=== PATIENT | male | born 1965 | race American Indian/Alaskan Native ===

== ENCOUNTER 2017-09-22 18:47 | Inpatient (IN) | payer OTHER ==
[2017-09-22 19:57] LABS: Basophils % (Auto) 0.8 % (0.0-1.8); Eosinophils % (Auto) 5.4 % (0.0-4.3); Hematocrit 37.4 % (35.5-45.6); Hemoglobin 12.8 gm/dl (11.8-15.2); Mean Corpuscular HGB Conc 34 % (32-34); Mean Corpuscular Hemoglobin 28 pg (28-32); Mean Corpuscular Volume 82 fl (84-94); Platelet Count 233 K/mm3 (140-440); Red Blood Count 4.54 M/mm3 (3.65-5.03); Red Cell Distribution Width 14.5 % (13.2-15.2)
[2017-09-22 20:15] LABS: Anion Gap 17 mmol/L; BUN/Creatinine Ratio 17; Blood Urea Nitrogen 31 mg/dL (9-20); Calcium 9.5 mg/dL (8.4-10.2); Carbon Dioxide 28 mmol/L (22-30); Chloride 98.2 mmol/L (98-107); Glucose 109 mg/dL (75-100); Potassium 4.3 mmol/L (3.6-5.0); Sodium 139 mmol/L (137-145)
[2017-09-22] MEDS ORDERED: MORPHINE IV ONE (20:43)
[2017-09-22] MEDS ORDERED: ZOFRAN IV ONE (20:43)
--- NOTE | 2017-09-22 20:48 | Emergency Department Report ---
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 Patient denied any cough fever and no other complaint. MD Complaint: chest pain -: days(s) Onset: during rest Pain Location: substernal, left chest Pain Radiation: none Quality: tightness, sharp, dull Consistency: intermittent re: denies: nausea, vomting, diaphoresis Other Symptoms: cough - Related Data Allergies Allergy/AdvReac Type Severity Reaction Status Date / Time No Known Allergies Allergy Verified 09/22/17 21:15 Heart Score - HEART Score History: Moderately suspicious EKG: Non-specific Age: 45-65 Risk factors: 1-2 risk factors Troponin: < normal limit HEART Score: 4 - Critical Actions Critical Actions: 4-6 pts:12-16.6% risk of adverse cardiac event. Should be admitted ED Review of Systems ROS: Stated complaint: CRAMPING UPPER BODY Other details as noted in HPI Comment: All other systems reviewed and negative Constitutional: denies: chills, fever Respiratory: shortness of breath, SOB at rest. denies: cough Cardiovascular: chest pain. denies: palpitations Gastrointestinal: denies: abdominal pain, nausea, vomiting, diarrhea Neurological: denies: headache, weakness, numbness, paresthesias ED Past Medical Hx - Past Medical History Hx Hypertension: Yes Hx Deep Vein Thrombosis: Yes - Surgical History Past Surgical History?: No - Social History Smoking Status: Never Smoker Substance Use Type: None ED Physical Exam - General Limitations: No Limitations General appearance: alert, in no apparent distress - Head Head exam: Present: normocephalic, normal inspection - ENT ENT exam: Present: normal exam, normal orophraynx - Neck Neck exam: Present: normal inspection, full ROM. Absent: tenderness, meningismus, lymphadenopathy, thyromegaly - Respiratory Respiratory exam: Present: normal lung sounds bilaterally. Absent: respiratory distress, wheezes, rales, rhonchi, accessory muscle use, decreased breath sounds , prolonged expiratory - Cardiovascular Cardiovascular Exam: Present: regular rate, normal rhythm, normal heart sounds - GI/Abdominal GI/Abdominal exam: Present: soft, normal bowel sounds. Absent: distended, tenderness, guarding, rebound, rigid, organomegaly, mass, bruit, pulsatile mass , hernia - Extremities Exam Extremities exam: Present: normal inspection. Absent: pedal edema - Back Exam Back exam: Present: normal inspection. Absent: tenderness, CVA tenderness (R), CVA tenderness (L), muscle spasm - Neurological Exam Neurological exam: Present: alert, oriented X3, CN II-XII intact, normal gait - Skin Skin exam: Present: warm, intact, normal color ED Course Vital Signs 09/22/17 09/22/17 09/22/17 18:54 18:58 19:00 Temperature 97.7 F Pulse Rate 86 77 Respiratory 26 H 11 L Rate Blood Pressure 161/97 161/97 161/97 O2 Sat by Pulse 100 100 100 Oximetry 09/22/17 09/22/17 09/22/17 19:16 19:30 19:46 Temperature Pulse Rate 83 74 70 Respiratory 11 L 11 L 12 Rate Blood Pressure 141/93 147/89 138/86 O2 Sat by Pulse 97 98 97 Oximetry 09/22/17 09/22/17 09/22/17 20:00 20:16 20:30 Temperature Pulse Rate 70 71 73 Respiratory 12 10 L 13 Rate Blood Pressure 138/86 138/86 138/86 O2 Sat by Pulse 97 98 97 Oximetry 09/22/17 09/22/17 09/22/17 20:46 20:57 21:00 Temperature Pulse Rate 77 73 Respiratory 10 L 18 13 Rate Blood Pressure 138/86 138/86 O2 Sat by Pulse 98 97 Oximetry 09/22/17 09/22/17 09/22/17 21:16 21:31 21:46 Temperature Pulse Rate 65 66 68 Respiratory 12 13 9 L Rate Blood Pressure 138/86 138/86 138/86 O2 Sat by Pulse 98 97 96 Oximetry 09/22/17 09/22/17 09/22/17 22:00 22:16 23:11 Temperature Pulse Rate 65 66 Respiratory 10 L 11 L 18 Rate Blood Pressure 138/86 138/86 O2 Sat by Pulse 98 97 98 Oximetry - Reevaluation(s) Reevaluation #1: 09/22/17 23:46 Patient stated that his symptoms is much better. ED Medical Decision Making - Lab Data Result diagrams: 09/22/17 19:33 09/22/17 19:33 - Radiology Data Radiology results: report reviewed VQ scan came back as low probability - Medical Decision Making discuss with Dr Last for admission. Critical care attestation.: If time is entered above; I have spent that time in minutes in the direct care of this critically ill patient, excluding procedure time. ED Disposition Clinical Impression: Chest pain Disposition: DC-09 OP ADMIT IP TO THIS HOSP Is pt being admited?: Yes Does the pt Need Aspirin: Yes Condition: Stable Instructions: Chest Pain (ED) Referrals: PRIMARY CARE, [Primary Care Provider] - 3-5 Days
[2017-09-22] MEDS ORDERED: MORPHINE ONE (20:57)
[2017-09-22] MEDS ORDERED: NACL ONE (21:11)
[2017-09-22 21:21] LABS: INR 1.1 (0.87-1.13); Partial Thromboplastin Time 31.2 Sec. (24.2-36.6)
--- NOTE | 2017-09-22 22:26 | XRay Report ---
FINAL REPORT EXAM: XR CHEST 1V AP HISTORY: chest pain COMPARISON: None available. FINDINGS: Frontal view(s) of the chest obtained. Cardiac silhouette within normal limits. No gross consolidation or effusion. No pneumothorax. IMPRESSION: No grossly acute findings.
--- NOTE | 2017-09-22 23:00 | Nuclear Medicine Report ---
FINAL REPORT EXAM: NM LUNG SCAN PERF/VENT HISTORY: CHEST PAIN,SOB, H/O DVT COMPARISON: Chest x-ray September 22, 2017. TECHNIQUE: 15.00 mCi Xenon5.00 MAA FINDINGS: Relatively homogeneous uptake of tracer in both the ventilation and perfusion portions of the exam. No mismatched defect. IMPRESSION: Very low probability exam for pulmonary embolus.
[2017-09-22] MEDS ORDERED: ASPIRIN PO ONE (23:55)
[2017-09-23] MEDS ORDERED: TYLENOL PO PRN (00:19)
[2017-09-23] MEDS ORDERED: NITROSTAT SL PRN (00:19)
[2017-09-23] MEDS ORDERED: ZOFRAN IV PRN (00:20)
[2017-09-23] MEDS ORDERED: MORPHINE IV PRN (00:21)
[2017-09-23] MEDS: NITRO-BID 2% TP SCH ×5 (01:28→19:04)
--- NOTE | 2017-09-23 01:42 | History and Physical Report ---
CHIEF COMPLAINT: Chest pain. Other complaints include abdominal pain. HISTORY OF PRESENT ILLNESS: The patient is a 52-year-old male presenting with retrosternal and precordial chest pain radiating to the left arm and left side of the neck. There is a history of associated shortness of breath, but no history of diaphoresis was reported. No history of cough or fever. No history of nausea or vomiting and pain. According to the patient, it started about 24-36 hours ago. The pain is tightness in nature, sometimes sharp and intermittent. The pain was relieved with pain medications. PAST MEDICAL HISTORY: Pertinent for hypertension, DVT or deep vein thrombosis. Also, the patient has past history of renal insufficiency. PAST SURGICAL HISTORY: Unremarkable. FAMILY HISTORY: Pertinent for coronary artery disease in the mother. SOCIAL HISTORY: The patient does not smoke, does not drink alcohol and does not use illicit drugs. MEDICATIONS: The patient's home medications are not known at this time. ALLERGIES: There are no known drug allergies. REVIEW OF SYSTEMS: CONSTITUTIONAL: There is no fever, no chills, no diaphoresis. HEENT: There is no headache or sore throat. CARDIOVASCULAR: Chest pain is present. No orthopnea. RESPIRATORY: Shortness of breath is present. GASTROINTESTINAL: There is no nausea, no vomiting. There is some abdominal discomfort and no diarrhea or constipation. NEUROLOGICAL: There is no numbness, no dizziness, no altered mental status. MUSCULOSKELETAL SYSTEM: Show no joint swelling or tenderness. DERMATOLOGICAL SYSTEM: Show no skin rash. GENITOURINARY: Showing no hematuria, dysuria, or flank pain. Rest of system review is normal. PHYSICAL EXAMINATION: GENERAL: At the time of exam, the patient was found to be alert and oriented x 3 and not in acute distress. VITAL SIGNS: Shows normal temperature with pulse of 66, respirations 11, blood pressure 138/86, and O2 sat of 97% on room air. HEENT: Showed pupils to be equal, round, reactive to light and accommodating. Extraocular muscles are intact. NECK: Supple with no JVD or carotid bruit. CARDIOVASCULAR SYSTEM: Show first and second heart sounds with no gallops or murmurs. RESPIRATORY: Showed good air entry on both sides of the lung with no abnormal breath sounds. GASTROINTESTINAL SYSTEM: Show abdomen to be full, soft, nontender with no organomegaly or rigidity. NEUROLOGICAL: Shows no focal deficit. MUSCULOSKELETAL: Show no joint swelling or tenderness. DERMATOLOGICAL SYSTEM: Showing no skin rash. GENITOURINARY: Showing no costovertebral angle tenderness. PERTINENT LABORATORY AND IMAGING STUDIES: The patient has CBC done with normal white count, normal hemoglobin and normal hematocrit. CBC differential was unremarkable except for elevated monocytes and eosinophils. Coagulation studies came back normal. The patient's chemistry shows normal electrolytes, with elevated BUN of 31 and elevated creatinine of 1.8 and low estimated GFR of 48. The patient's troponin level was unremarkable. The patient had a V/Q scan done because of his renal insufficiency and V/Q scan shows very low probability for pulmonary embolism. Also, the patient had chest x-ray done as part of the chest pain workup and shows no acute finding. DIAGNOSES: 1. Chest pain. 2. Acute on chronic kidney injury or acute on chronic renal failure. PLAN: The patient will be admitted to medical floor, on telemetry. We will have cardiac enzymes involving troponin, total CPK, CK-MB checked q. 6 hours x 2 more levels. The patient will be n.p.o. for Lexiscan stress test in the morning and will have basic metabolic panel checked in the morning. The patient will also have Nephrology consult with Dr. Paniagua for acute on chronic kidney injury. The patient will be on aspirin 325 mg daily and will be on heparin 5000 units subcutaneously q.12 hours for DVT prophylaxis. The patient will be on nitro paste 1 inch to anterior chest wall q.6 hours and he will also be on sublingual nitroglycerin 0.4 mg every 5 minutes as needed for chest pain. The patient will be on morphine 2 mg every 3 hours IV as needed for pain and IV Zofran 4 mg every 6 hours for nausea and vomiting. The patient will also be on Tylenol 650 mg every 4 hours for fever and headache and will be on normal saline at 125 mL an hour. Further management of the patient's condition will be dependent on the result of the stress test and Nephrology consult. JOB# [id number] OCN/NTS
[2017-09-23] MEDS: NACL 0.9% 1000 ML 1,000 ML IV SCH ×3 (03:00→22:43)
[2017-09-23 07:18] LABS: Calcium 9.1 mg/dL (8.4-10.2); Chloride 99.2 mmol/L (98-107); Potassium 3.9 mmol/L (3.6-5.0)
[2017-09-23 07:20] LABS: Creatine Kinase MB 9.7 ng/mL (0.0-4.0)
[2017-09-23 07:22] LABS: Creatine Kinase 886 units/L (55-170)
[2017-09-23] MEDS: HEPARIN SUB-Q SCH ×2 (10:27→22:43)
[2017-09-23] MEDS: ASPIRIN PO SCH (10:27)
--- NOTE | 2017-09-23 12:37 | Consultation ---
History of Present Illness - Reason for Consult Consult date: 09/23/17 acute renal failure - History of Present Illness This is a 52 year old male who presents to the E.R yesterday with a chief complaint of left-sided chest pain. Patient denies having any Hypertension or Diabetes but his sister at bedside states he does have Hypertension. 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 Patient states he has pain to his right leg and sister reports he has been complaining of pain to that leg for over 1 year now. On evaluation CXR was done that showed no acute findings. VQ scan revealed low probability for Pulmonary Embolus. Patient was noted to have an elevated Ck level of 886 and an elevated serum creatinine of 1.8 on admission. We are being consulted for the management of this patient's Acute Renal Failure. Past History Past Medical History: DVT, hypertension Past Surgical History: No surgical history Social history: no significant social history Family history: no significant family history Medications and Allergies Allergies Allergy/AdvReac Type Severity Reaction Status Date / Time No Known Allergies Allergy Verified 09/22/17 21:15 Home Medications Medication Instructions Recorded Confirmed Last Taken Type No Known Home Medications [No 09/23/17 09/23/17 Unknown History Reported Home Medications] Active Meds: Active Medications Acetaminophen (Tylenol) 650 mg PO Q4H PRN PRN Reason: For Pain/Fever/Headache Aspirin (Aspirin) 325 mg PO QDAY [facility] Last Admin: 09/23/17 10:27 Dose: 325 mg Heparin Sodium (Porcine) (Heparin) 5,000 unit SUB-Q Q12HR [facility] Last Admin: 09/23/17 10:27 Dose: 5,000 unit Sodium Chloride (Nacl 0.9% 1000 Ml) 1,000 mls @ 125 mls/hr IV DIRECT [facility] Last Admin: 09/23/17 10:38 Dose: 125 mls/hr Morphine Sulfate (Morphine) 2 mg IV Q3H PRN PRN Reason: Pain, Moderate (4-6) Nitroglycerin (Nitrostat) 0.4 mg SL .Q5MIN PRN PRN Reason: Chest Pain Nitroglycerin (Nitro-Bid 2%) 1 inch TP QIDNTG [facility] PRN Reason: Protocol Last Admin: 09/23/17 10:24 Dose: Not Given Ondansetron HCl (Zofran) 4 mg IV Q6H PRN PRN Reason: Nausea And Vomiting Review of Systems Constitutional: no weight loss, no weight gain, no fever, no chills, no sweats, no night sweats Ears, nose, mouth and throat: no ear pain, no ear discharge, no tinnitis, no decreased hearing, no nose pain, no nasal congestion Cardiovascular: no chest pain, no orthopnea, no palpitations, no rapid/ irregular heart beat, no edema, no syncope, no lightheadedness, no shortness of breath Respiratory: no cough, no cough with sputum, no excessive sputum, no hemoptysis , no shortness of breath, no dyspnea on exertion Gastrointestinal: no abdominal pain, no nausea, no vomiting, no diarrhea, no constipation, no change in bowel habits, no hematemesis Musculoskeletal: other (right leg pain), no neck stiffness, no neck pain, no shooting arm pain, no arm numbness/tingling, no low back pain, no shooting leg pain, no leg numbness/tingling Integumentary: no rash, no pruritis, no redness, no sores, no wounds, no jaundice Neurological: no paralysis, no weakness, no parathesias, no numbness, no tingling, no seizures, no syncope, no tremors Psychiatric: no memory loss, no change in sleep habits, no sleep disturbances, no insomnia, no hypersomnia, no change in appetite, no change in libido, no suicidal ideation Endocrine: no cold intolerance, no heat intolerance, no polyphagia, no excessive thirst, no polydipsia, no polyuria Hematologic/Lymphatic: no lymphadenopathy, no lymphedema Exam - Vital Signs Vital signs: Vital Signs BP Pulse Ox 161/97 100 09/22/17 18:54 09/22/17 18:54 - General Appearance General appearance: well-developed, well-nourished, appears stated age EENT: ATNC, PERRL, hearing intact, vision intact Neck: Present: neck supple, trachea midline Respiratory: Clear to Ascultation Heart: regular, S1S2 Gastrointestinal: Present: normoactive bowel sounds Integumentary: warm and dry Neurologic: alert and oriented x3 Musculoskeletal: Absent: deformities, joint swelling Psychiatric: cooperative Results - Lab Results 09/22/17 19:33 09/23/17 06:22 Most recent lab results Calcium 9.1 mg/dL (8.4-10.2) 09/23/17 06:22 Assessment and Plan - Patient Problems (1) Chest pain Current Visit: Yes Status: Acute Qualifiers: Chest pain type: C Ischemic chest pain type: I Plan to address problem: Undergoing stress test in a.m (2) Acute renal failure due to rhabdomyolysis Current Visit: Yes Status: Acute Plan to address problem: Acute Renal failure likely due to Rhabdomyolysis Renal function improving on IV hydration, current serum creatinine 1.6 from 1.8 yesterday Continue to trend CK levels Will obtain urine lytes Will obtain renal ultrasound Avoid Nephrotoxic agents Obtain daily weights Monitor I/O's Will monitor renal function closely (3) Hypertension Current Visit: Yes Status: Acute Qualifiers: Hypertension type: H Plan to address problem: Blood pressures are stable
[2017-09-23 13:55] LABS: Creatine Kinase MB 8.3 ng/mL (0.0-4.0)
[2017-09-23 14:00] LABS: Creatine Kinase 743 units/L (55-170)
[2017-09-23 16:28] LABS: Bilirubin,Urine NEG (Negative); Blood,Urine NEG (Negative); Ketones,Urine NEG (Negative); Leukocyte Esterase,Urine NEG (Negative); Mucus,Urine FEW /HPF; Nitrite,Urine NEG (Negative); Protein,Urine <15 mg/dL mg/dL (Negative); Urobilinogen,Urine < 2.0 mg/dL (<2.0)
[2017-09-24] MEDS: NACL 0.9% 1000 ML 1,000 ML IV SCH ×3 (05:54→23:36)
[2017-09-24] MEDS: NITRO-BID 2% TP SCH ×4 (06:10→17:59)
[2017-09-24 07:12] LABS: Hematocrit 35.6 % (35.5-45.6); Mean Corpuscular HGB Conc 34 % (32-34); Mean Corpuscular Hemoglobin 28 pg (28-32); Mean Corpuscular Volume 83 fl (84-94); Platelet Count 199 K/mm3 (140-440); Red Cell Distribution Width 14.9 % (13.2-15.2); White Blood Count 3.9 K/mm3 (4.5-11.0)
[2017-09-24 07:38] LABS: Alanine Aminotransferase 21 units/L (7-56); Albumin 3.5 g/dL (3.9-5); Albumin/Globulin Ratio 1.2 %; Alkaline Phosphatase 63 units/L (35-129); Anion Gap 16 mmol/L; BUN/Creatinine Ratio 14; Blood Urea Nitrogen 20 mg/dL (9-20); Calcium 8.5 mg/dL (8.4-10.2); Carbon Dioxide 25 mmol/L (22-30); Chloride 102.9 mmol/L (98-107); Creatine Kinase 433 units/L (55-170); Glucose 103 mg/dL (75-100); Potassium 4.1 mmol/L (3.6-5.0); Sodium 140 mmol/L (137-145); Total Protein 6.5 g/dL (6.3-8.2)
[2017-09-24 08:52] LABS: Blastocytes % (Manual) 0 %; RBC Morphology Normal
[2017-09-24 08:53] LABS: Diff Status Complete
[2017-09-24] MEDS ORDERED: LEXISCAN IV ONE ×2 (09:30)
--- NOTE | 2017-09-24 09:39 | Progress Note ---
Assessment and Plan (1) Chest pain Current Visit: Yes Status: Acute Qualifiers: Chest pain type: C Ischemic chest pain type: I Plan to address problem: followed by cardiology V/Q scan negative for PE (2) Acute renal failure due to rhabdomyolysis Current Visit: Yes Status: Acute Plan to address problem: kidney function cont to improve will decrease IVF to 75 cc/h Avoid Nephrotoxic agents Obtain daily weights Monitor I/O's Will monitor renal function closely (3) Hypertension Current Visit: Yes Status: Acute Qualifiers: Hypertension type: H Plan to address problem: Blood pressures are stable off meds Subjective Date of service: 09/24/17 Principal diagnosis: chest pain Interval history: feels better, no more chest pain Objective - Vital Signs Vital signs: Vital Signs - 12hr 09/24/17 09/24/17 09/24/17 00:33 03:00 04:55 Temperature 98.6 F 98.3 F Pulse Rate 67 59 L 60 Respiratory 18 20 Rate Blood Pressure 106/66 128/83 O2 Sat by Pulse 96 98 Oximetry - General Appearance General appearance: well-developed, well-nourished, appears stated age EENT: ATNC, PERRL, mucous membranes moist Neck: no JVD, no carotid bruit Respiratory: Present: Clear to Ascultation. Absent: Rales, Ronchi Cardiology: regular, S1S2 Gastrointestinal: normoactive bowel sounds, no tenderness, no distended, no masses Integumentary: no rash, warm and dry Neurologic: no focal deficit, no asterixis, alert and oriented x3 Musculoskeletal: other (no edema in BLE) Psychiatric: mood/affect appropriate, cooperative - Lab 09/24/17 05:57 09/24/17 05:57 Most recent lab results Calcium 8.5 mg/dL (8.4-10.2) 09/24/17 05:57 Phosphorus 2.90 mg/dL (2.5-4.5) 09/24/17 05:57 Urine Creatinine 213.0 mg/dL (0.1-20.0) H 09/23/17 16:15 Urine Sodium 76 mEq/L 09/23/17 16:15 Urine Total Protein 12.71 mg/dL (5-11.8) H 09/23/17 16:15
--- NOTE | 2017-09-24 11:43 | Progress Note ---
Assessment and Plan Assessment and plan: Chest pain. VQ scan was found to be negative Await Lexiscan results. Acute renal failure. Etiology likely secondary to rhabdomyolysisnd vasomotor nephropathy. Continue IV fluid hydration. Nephrology following. Hypertension. Continue antihypertensives Rhabdomyolysis. Follow-up CK levels. History Interval history: no new issues overnight. Hospitalist Physical - Constitutional Vitals: Temp Pulse Resp BP Pulse Ox 98.3 F 53 L 20 139/86 94 09/24/17 09:52 09/24/17 10:55 09/24/17 10:00 09/24/17 10:44 09/24/17 10:00 General appearance: Present: no acute distress, well-nourished - EENT Eyes: Present: PERRL, EOM intact ENT: hearing intact, clear oral mucosa, dentition normal - Neck Neck: Present: supple, normal ROM - Respiratory Respiratory effort: normal Respiratory: bilateral: CTA - Cardiovascular Rhythm: regular Heart Sounds: Present: S1 & S2. Absent: gallop, rub - Extremities Extremities: no ischemia, No edema, Full ROM - Abdominal General gastrointestinal: soft, non-tender, non-distended, normal bowel sounds - Integumentary Integumentary: Present: clear, warm, dry - Neurologic Neurologic: CNII-XII intact, moves all extremities Results - Labs CBC & Chem 7: 09/24/17 05:57 09/24/17 05:57 Labs: Laboratory Last Values WBC 3.9 K/mm3 (4.5-11.0) L 09/24/17 05:57 RBC 4.30 M/mm3 (3.65-5.03) 09/24/17 05:57 Hgb 12.0 gm/dl (11.8-15.2) 09/24/17 05:57 Hct 35.6 % (35.5-45.6) 09/24/17 05:57 MCV 83 fl (84-94) L 09/24/17 05:57 MCH 28 pg (28-32) 09/24/17 05:57 MCHC 34 % (32-34) 09/24/17 05:57 RDW 14.9 % (13.2-15.2) 09/24/17 05:57 Plt Count 199 K/mm3 (140-440) 09/24/17 05:57 Lymph % (Auto) Not Reportable 09/24/17 05:57 [place] % (Auto) Not Reportable 09/24/17 05:57 Eos % (Auto) Not Reportable 09/24/17 05:57 Baso % (Auto) Not Reportable 09/24/17 05:57 Lymph # Not Reportable 09/24/17 05:57 [place] # Not Reportable 09/24/17 05:57 Eos # Not Reportable 09/24/17 05:57 Baso # Not Reportable 09/24/17 05:57 Add Manual Diff Complete 09/24/17 05:57 Total Counted 100 09/24/17 05:57 Seg Neutrophils % 58.5 % (40.0-70.0) 09/22/17 19:33 Seg Neuts % (Manual) 63.0 % (40.0-70.0) 09/24/17 05:57 Band Neutrophils % 0 % 09/24/17 05:57 Lymphocytes % (Manual) 26.0 % (13.4-35.0) 09/24/17 05:57 Reactive Lymphs % (Man) 0 % 09/24/17 05:57 Monocytes % (Manual) 3.0 % (0.0-7.3) 09/24/17 05:57 Eosinophils % (Manual) 7.0 % (0.0-4.3) H 09/24/17 05:57 Basophils % (Manual) 1.0 % (0.0-1.8) 09/24/17 05:57 Metamyelocytes % 0 % 09/24/17 05:57 Myelocytes % 0 % 09/24/17 05:57 Promyelocytes % 0 % 09/24/17 05:57 Blast Cells % 0 % 09/24/17 05:57 Nucleated RBC % Not Reportable 09/24/17 05:57 Seg Neutrophils # Not Reportable 09/24/17 05:57 Seg Neutrophils # Man 2.5 K/mm3 (1.8-7.7) 09/24/17 05:57 Band Neutrophils # 0.0 K/mm3 09/24/17 05:57 Lymphocytes # (Manual) 1.0 K/mm3 (1.2-5.4) L 09/24/17 05:57 Abs React Lymphs (Man) 0.0 K/mm3 09/24/17 05:57 Monocytes # (Manual) 0.1 K/mm3 (0.0-0.8) 09/24/17 05:57 Eosinophils # (Manual) 0.3 K/mm3 (0.0-0.4) 09/24/17 05:57 Basophils # (Manual) 0.0 K/mm3 (0.0-0.1) 09/24/17 05:57 Metamyelocytes # 0.0 K/mm3 09/24/17 05:57 Myelocytes # 0.0 K/mm3 09/24/17 05:57 Promyelocytes # 0.0 K/mm3 09/24/17 05:57 Blast Cells # 0.0 K/mm3 09/24/17 05:57 WBC Morphology Not Reportable 09/24/17 05:57 Hypersegmented Neuts Not Reportable 09/24/17 05:57 Hyposegmented Neuts Not Reportable 09/24/17 05:57 Hypogranular Neuts Not Reportable 09/24/17 05:57 Smudge Cells Not Reportable 09/24/17 05:57 Toxic Granulation Not Reportable 09/24/17 05:57 Toxic Vacuolation Not Reportable 09/24/17 05:57 Dohle Bodies Not Reportable 09/24/17 05:57 Pelger-Huet Anomaly Not Reportable 09/24/17 05:57 Enrique Rods Not Reportable 09/24/17 05:57 Platelet Estimate Appears normal 09/24/17 05:57 Clumped Platelets Not Reportable 09/24/17 05:57 Plt Clumps, EDTA Not Reportable 09/24/17 05:57 Large Platelets Not Reportable 09/24/17 05:57 Giant Platelets Not Reportable 09/24/17 05:57 Platelet Satelliting Not Reportable 09/24/17 05:57 Plt Morphology Comment Not Reportable 09/24/17 05:57 RBC Morphology Normal 09/24/17 05:57 Dimorphic RBCs Not Reportable 09/24/17 05:57 Polychromasia Not Reportable 09/24/17 05:57 Hypochromasia Not Reportable 09/24/17 05:57 Poikilocytosis Not Reportable 09/24/17 05:57 Anisocytosis Not Reportable 09/24/17 05:57 Microcytosis Not Reportable 09/24/17 05:57 Macrocytosis Not Reportable 09/24/17 05:57 Spherocytes Not Reportable 09/24/17 05:57 Pappenheimer Bodies Not Reportable 09/24/17 05:57 Sickle Cells Not Reportable 09/24/17 05:57 Target Cells Not Reportable 09/24/17 05:57 Tear Drop Cells Not Reportable 09/24/17 05:57 Ovalocytes Not Reportable 09/24/17 05:57 Helmet Cells Not Reportable 09/24/17 05:57 [place] Bodies Not Reportable 09/24/17 05:57 [place] Rings Not Reportable 09/24/17 05:57 [place] Cells Not Reportable 09/24/17 05:57 Bite Cells Not Reportable 09/24/17 05:57 Crenated Cell Not Reportable 09/24/17 05:57 Elliptocytes Not Reportable 09/24/17 05:57 Acanthocytes (Spur) Not Reportable 09/24/17 05:57 Rouleaux Not Reportable 09/24/17 05:57 Hemoglobin C Crystals Not Reportable 09/24/17 05:57 Schistocytes Not Reportable 09/24/17 05:57 Malaria parasites Not Reportable 09/24/17 05:57 [place] Bodies Not Reportable 09/24/17 05:57 Hem Pathologist Commnt No 09/24/17 05:57 PT 14.8 Sec. (12.2-14.9) 09/22/17 20:52 INR 1.10 (0.87-1.13) 09/22/17 20:52 APTT 31.2 Sec. (24.2-36.6) 09/22/17 20:52 Sodium 140 mmol/L (137-145) 09/24/17 05:57 Potassium 4.1 mmol/L (3.6-5.0) 09/24/17 05:57 Chloride 102.9 mmol/L (98-107) 09/24/17 05:57 Carbon Dioxide 25 mmol/L (22-30) 09/24/17 05:57 Anion Gap 16 mmol/L 09/24/17 05:57 BUN 20 mg/dL (9-20) 09/24/17 05:57 Creatinine 1.4 mg/dL (0.8-1.5) 09/24/17 05:57 Estimated GFR > 60 ml/min 09/24/17 05:57 BUN/Creatinine Ratio 14 % 09/24/17 05:57 Glucose 103 mg/dL (75-100) H 09/24/17 05:57 Calcium 8.5 mg/dL (8.4-10.2) 09/24/17 05:57 Phosphorus 2.90 mg/dL (2.5-4.5) 09/24/17 05:57 Total Bilirubin 0.20 mg/dL (0.1-1.2) 09/24/17 05:57 AST 20 units/L (5-40) 09/24/17 05:57 ALT 21 units/L (7-56) 09/24/17 05:57 Alkaline Phosphatase 63 units/L (35-129) 09/24/17 05:57 Total Creatine Kinase 433 units/L (55-170) H 09/24/17 05:57 CK-MB (CK-2) 8.3 ng/mL (0.0-4.0) H 09/23/17 13:00 CK-MB (CK-2) Rel Index 1.1 (0-4) 09/23/17 13:00 Troponin T < 0.010 ng/mL (0.00-0.029) 09/23/17 13:00 Total Protein 6.5 g/dL (6.3-8.2) 09/24/17 05:57 Albumin 3.5 g/dL (3.9-5) L 09/24/17 05:57 Albumin/Globulin Ratio 1.2 % 09/24/17 05:57 Urine Color Yellow (Yellow) 09/23/17 16:15 Urine Turbidity Clear (Clear) 09/23/17 16:15 Urine pH 5.0 (5.0-7.0) 09/23/17 16:15 Ur Specific [place] 1.020 (1.003-1.030) 09/23/17 16:15 Urine Protein <15 mg/dl mg/dL (Negative) 09/23/17 16:15 Urine Glucose (UA) Neg mg/dL (Negative) 09/23/17 16:15 Urine Ketones Neg mg/dL (Negative) 09/23/17 16:15 Urine Blood Neg (Negative) 09/23/17 16:15 Urine Nitrite Neg (Negative) 09/23/17 16:15 Urine Bilirubin Neg (Negative) 09/23/17 16:15 Urine Urobilinogen < 2.0 mg/dL (<2.0) 09/23/17 16:15 Ur Leukocyte Esterase Neg (Negative) 09/23/17 16:15 Urine WBC (Auto) 4.0 /HPF (0.0-6.0) 09/23/17 16:15 Urine RBC (Auto) 1.0 /HPF (0.0-6.0) 09/23/17 16:15 U Epithel Cells (Auto) 2.0 /HPF (0-13.0) 09/23/17 16:15 Hyaline Casts 1 /LPF 09/23/17 16:15 Urine Mucus Few /HPF 09/23/17 16:15 Urine Creatinine 213.0 mg/dL (0.1-20.0) H 09/23/17 16:15 Protein/Creatinin Ratio 0.06 09/23/17 16:15 Urine Sodium 76 mEq/L 09/23/17 16:15 Urine Total Protein 12.71 mg/dL (5-11.8) H 09/23/17 16:15
[2017-09-24] MEDS: ASPIRIN PO SCH (12:42)
[2017-09-24] MEDS: HEPARIN SUB-Q SCH ×2 (12:42→23:35)
--- NOTE | 2017-09-24 13:41 | Ultrasound Report ---
ULTRASOUND RENAL INDICATION: Renal failure. COMPARISON: 08/12/2011 CT. FINDINGS: Renal sonography suggests top normal renal cortical echogenicity. Grossly preserved contours. No hydronephrosis. RIGHT KIDNEY measures 9.5 x 4.6 x 5.5 cm with cortical thickness of 1.2 cm. LEFT KIDNEY estimated at 10.6 x 5 x 5.7 cm with cortical thickness of 1.3 cm. URINARY BLADDER suboptimally distended and assessed. CONCLUSION: No acute renal sonographic abnormality, as described. Thank you for the opportunity to participate in this patient's care.
[2017-09-25 06:34] LABS: Basophils % (Auto) 0.9 % (0.0-1.8); Hematocrit 34.8 % (35.5-45.6); Hemoglobin 11.7 gm/dl (11.8-15.2); Mean Corpuscular HGB Conc 34 % (32-34); Mean Corpuscular Hemoglobin 28 pg (28-32); Mean Corpuscular Volume 83 fl (84-94); Platelet Count 203 K/mm3 (140-440); Red Blood Count 4.19 M/mm3 (3.65-5.03); Red Cell Distribution Width 14.3 % (13.2-15.2); White Blood Count 4.3 K/mm3 (4.5-11.0)
[2017-09-25 06:49] LABS: Calcium 8.6 mg/dL (8.4-10.2); Chloride 104.9 mmol/L (98-107); Potassium 4.1 mmol/L (3.6-5.0)
--- NOTE | 2017-09-25 08:37 | Discharge Summary ---
Providers - Providers Date of Admission: 09/23/17 00:07 Date of discharge: 09/25/17 Attending physician: TALYA LOPEZ 09/23/17 06:23 Consult to Physician [CONS] Routine Consulting Provider: DENNIS HUFFMAN Reason For Exam: [facility] consult to:: Jennie HUFFMAN Notified:: OFFICE Phone number called:: [phone] Was contact made?: Yes If yes, spoke with:: DR HUFFMAN Time called:: 09:36 Primary care physician: MEAT STOCKER Hospitalization Reason for admission: cp Condition: Stable Hospital course: This is a 52 year old male who presents to the E. yesterday with a chief complaint of left-sided chest pain. Patient denies having any Hypertension or Diabetes but his sister at bedside states he does have Hypertension. 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 Patient states he has pain to his right leg and sister reports he has been complaining of pain to that leg for over 1 year now. On evaluation CXR was done that showed no acute findings. VQ scan revealed low probability for Pulmonary Embolus. Patient was noted to have an elevated Ck level of 886 and an elevated serum creatinine of 1.8 on admission. The patient was admitted with diagnosis o acute renal failure secondary to vasomotor nephropathy and rhabdomyolysis. The patientwas seen by nephrology in consultation and treated with IV fluid hydration with significant improvement. The patient also underwent a stress thallium which was found to negative for ischemia. Etiology of chest pain likely related to GERD. Dedicated discharge time 32 minutes Disposition: - TO HOME OR SELFCARE Time spent for discharge: 32 - Discharge Diagnoses (1) GERD (gastroesophageal reflux disease) Status: Acute Qualifiers: Esophagitis presence: E (2) Acute renal failure due to rhabdomyolysis Status: Acute (3) Chest pain Status: Acute Qualifiers: Chest pain type: C Ischemic chest pain type: I (4) Hypertension Status: Acute Qualifiers: Hypertension type: H (5) Vasomotor nephropathy Status: Acute Core Measure Documentation - Palliative Care Palliative Care/ Comfort Measures: Not Applicable - Core Measures Any of the following diagnoses?: none Exam - Constitutional Vitals: Temp Pulse Resp BP Pulse Ox 98.3 F 63 18 128/80 97 09/25/17 05:07 09/25/17 05:07 09/25/17 05:07 09/25/17 05:07 09/25/17 05:07 General appearance: Present: no acute distress, well-nourished - EENT Eyes: Present: PERRL ENT: hearing intact, clear oral mucosa - Neck Neck: Present: supple, normal ROM - Respiratory Respiratory effort: normal Respiratory: bilateral: CTA - Cardiovascular Heart Sounds: Present: S1 & S2. Absent: rub, click - Extremities Extremities: pulses symmetrical, No edema Peripheral Pulses: within normal limits - Abdominal General gastrointestinal: Present: soft, non-tender, non-distended, normal bowel sounds Male genitourinary: Present: normal - Integumentary Integumentary: Present: clear, warm, dry - Musculoskeletal Musculoskeletal: gait normal, strength equal bilaterally - Psychiatric Psychiatric: appropriate mood/affect, intact judgment & insight - Neurologic Neurologic: CNII-XII intact, moves all extremities Plan Activity: no restrictions Weight Bearing Status: Full Weight Bearing Diet: regular Follow up with: PRIMARY CARE, [Primary Care Provider] - 3-5 Days Prescriptions: Pantoprazole [Protonix TAB] 20 mg PO QDAY #30 tablet.
[2017-09-25 08:56] VITALS: BP 136/84
--- NOTE | 2017-09-25 12:24 | Progress Note ---
Assessment and Plan - Patient Problems (1) Chest pain Status: Acute Qualifiers: Chest pain type: C Ischemic chest pain type: I Plan to address problem: Resolved (2) Acute renal failure due to rhabdomyolysis Status: Acute Plan to address problem: Acute Renal failure likely due to Rhabdomyolysis Renal function improving on IV hydration, current serum creatinine 1.5 CK levels trending down Avoid Nephrotoxic agents Obtain daily weights Monitor I/O's F/U up with us in office in 7-10 days of discharge (3) Hypertension Status: Acute Qualifiers: Hypertension type: H Plan to address problem: Blood pressures are stable Subjective Date of service: 09/25/17 Principal diagnosis: chest pain Objective - Vital Signs Vital signs: Vital Signs - 12hr 09/25/17 09/25/17 09/25/17 03:00 05:07 08:55 Temperature 98.3 F 98.4 F Pulse Rate 64 63 66 Pulse Rate [ From Monitor] Respiratory 18 18 Rate Blood Pressure 128/80 Blood Pressure 136/84 [Right] O2 Sat by Pulse 97 92 Oximetry 09/25/17 09/25/17 09:46 10:00 Temperature Pulse Rate 63 Pulse Rate [ 63 From Monitor] Respiratory 18 Rate Blood Pressure Blood Pressure [Right] O2 Sat by Pulse Oximetry - Lab 09/25/17 05:48 09/25/17 05:48 Most recent lab results Calcium 8.6 mg/dL (8.4-10.2) 09/25/17 05:48 Phosphorus 2.90 mg/dL (2.5-4.5) 09/24/17 05:57 Urine Creatinine 213.0 mg/dL (0.1-20.0) H 09/23/17 16:15 Urine Sodium 76 mEq/L 09/23/17 16:15 Urine Total Protein 12.71 mg/dL (5-11.8) H 09/23/17 16:15
== END 2017-09-25 11:50 | disposition home or self-care (01) | DRG 557 ==
LOC: ED 18:47 → 4A 09-23 00:07
PROVIDERS: ADMIT Internal Medicine; ATTEND Hospitalist
DX: M62.82 Rhabdomyolysis (principal); N17.0 Acute kidney failure with tubular necrosis; K21.9 Gastro-esophageal reflux disease without esophagitis; Z86.718 Personal history of other venous thrombosis and embolism; N18.9 Chronic kidney disease, unspecified; I12.9 Hypertensive chronic kidney disease with stage 1 through stage 4 chronic kidney disease, or unspecified chronic kidney disease; Z79.01 Long term (current) use of anticoagulants
CPT/HCPCS: 36415; 71010; 76770; 78452; 78582; 80048; 80053; 81001; 82550; 82553; 82570; 84100; 84156; 84300; 84484; 85007; 85025; 85610; 85730; 93005; 93010; 93017; A9502; A9540; A9558; J1644; J2270; J2405; J2785; J7030